=== PATIENT | male | born 1945 | race Two or more races ===

== ENCOUNTER → 2018-01-05 | Emergency (ER) | payer OTHER ==
[~2018-01-05] VITALS: Ht 177.8 cm; Wt 97.5 kg
[~2018-01-05] MED LIST: CARDURA XL4 MG; CLONAZEPAM2 MG; PAXIL30 MG; XANAX XR2 MG
== END | disposition home or self-care (01) ==
LOC: ER 19:25
DX: I10 Essential (primary) hypertension (principal); F41.8 Other specified anxiety disorders